=== PATIENT | male | born 1980 | race Caucasian/White ===

== ENCOUNTER 2018-06-10 18:46 | Emergency (ER) | payer OTHER ==
[2018-06-10] MEDS ORDERED: ORPHENADRINE CITRATE 60 MG/2 ML ML IM ONE (19:04)
[2018-06-10] MEDS ORDERED: KETOROLAC TROMETHAMINE 60 MG/2 ML VIAL IM ONE (19:04)
--- NOTE | 2018-06-10 20:03 | ED Physician Documentation ---
Upper Back Injury/Pain - HISTORIAN Historian: patient - HPI Stated Complaint: upper back pain Chief Complaint: Upper Back Injury/ Pain Onset: days ago Further Comments: yes (37 year old male patient presents with complaint of 2 weeks of back pain. States the pain is worse today after working. Lifted and moved heavy equipment 2 weeks which started the back pain. Pain is worse with movement and using his arms. Denies SOB or N/V with back pain. Reports pain is between his shoulders.) - ROS NEURO/PSYCH: denies: difficulty with speech, anxiety, depression, other EYES/ENT: none CVS/RESP: none CONST: denies: no problems, recent illness, other GI/: denies: nausea, vomiting, problems urinating, incontinence, other MS/SKIN/LYMPH: denies: none, calf pain, neck pain, joint pain, leg swelling, rash, swollen glands, leg pain, back pain, ankle swelling, other - PAST HX Past History: back pain Allergies/Adverse Reactions: Allergies Allergy/AdvReac Type Severity Reaction Status Date / Time Penicillins Allergy Verified 06/10/18 19:05 Home Medications: Ambulatory Orders Medication Instructions Recorded Baclofen [Liorasal] 10 mg PO TID PRN #30 tablet 06/10/18 Ketorolac Tromethamine [Toradol] 10 mg PO TID #15 tablet 06/10/18 - SOCIAL HX Smoking History: cigarettes - FAMILY HX Family History: denies: none - VITAL SIGNS Vital Signs: Vital Signs Temp Pulse Resp BP Pulse Ox 98.2 F 88 20 143/93 97 06/10/18 20:07 06/10/18 20:07 06/10/18 20:07 06/10/18 20:07 06/10/18 20:07 - REVIEWED ASSESSMENTS Nursing Assessment Reviewed: Yes Vitals Reviewed: Yes Progress - Progress Progress: Patient sleeping on stretcher. States he feels better. Reviewed discharge instructions; questions answered. Patient able to walk out of ER with no grimacing or c/o discomfort. ED Results Lab/Radiology - Radiology Radiology Impressions: EXAMINATION: T SPINE 3 VIEWS HISTORY: mid back pain, no injury COMPARISON: None FINDINGS: The vertebral bodies are normally aligned. No acute fracture or compression deformity is identified. There is mild degenerative disc disease predominating in the lower thoracic spine. IMPRESSION: 1. No acute fracture or subluxation identified. 2. Mild thoracic degenerative disc disease. Electronically signed on Jun 10, 2018 7:44:18 PM CDT by: Marquis Araiza - Orders Orders: ED Orders Category Date Time Status T SPINE 3 VIEWS [RAD] Stat Exams 06/10/18 Taken Ketorolac Tromethamine [Toradol] Med 06/10/18 19:04 Discontinued 60 mg IM NOW ONE Orphenadrine Citrate [Norflex] Med 06/10/18 19:04 Discontinued 60 mg IM NOW ONE Upper Back Injury Physical Ex - Physical Exam General Appearance: mild distress Back: muscle spasm (T-spine; worse on right), other (pain worse with movement. ). No: vertebral point-tendernes Respiratory: chest non-tender, breath sounds nml CVS: heart sounds nml, bilateral pulses nml Skin: normal color, warm/dry, NR, INT, PAL, DR Neuro/Psych: oriented x3 Discharge Clincal Impression: Acute thoracic back pain Qualifiers: Back pain laterality: right Qualified Code(s): M54.6 - Pain in thoracic spine Prescriptions: Baclofen [Liorasal] 10 mg PO TID PRN #30 tablet PRN Reason: Spasms Ketorolac Tromethamine [Toradol] 10 mg PO TID #15 tablet Referrals: Primary Doctor,No [Primary Care Provider] - 2 Days Additional Instructions: Ice Rest Elevation You may use Tylenol every 4hour as needed for pain. Limit your dose to less than 4 G per day. Do not take ibuprofen, aleve, naproxen or any other NSAID while you are on toradol. (ketoralac) You may want to try massage, over the counter lidocaine patches, biofreeze, cyrus chapin or aspercream . If you are unable to bear weight and continuing to have significant pain on day 3-4; see your PCP for re-evaluation and additional xrays Condition: Stable Decision to Admit: NO Decision Time: 20:02
[2018-06-10 20:14] VITALS: BP 143/93
--- NOTE | 2018-06-11 05:05 | Diagnostic Imaging Report ---
ANICETO CHICAS (FERRIS WHEEL OPERATOR) - ER [facility] [address] [facility].[address] [address] Report Submission Date: Jun 10, 2018 7:44:18 PM CDT Patient Study Name: [address] Date: Jun 10, 2018 7:12:23 PM CDT Modality Type: DX Gender: M Description: T SPINE 3 VIEWS : 76 Institution: [facility] Physician: ANICETO CHICAS (FERRIS WHEEL OPERATOR) - ER EXAMINATION: T SPINE 3 VIEWS HISTORY: mid back pain, no injury COMPARISON: None FINDINGS: The vertebral bodies are normally aligned. No acute fracture or compression deformity is identified. There is mild degenerative disc disease predominating in the lower thoracic spine. IMPRESSION: 1. No acute fracture or subluxation identified. 2. Mild thoracic degenerative disc disease. Electronically signed on Jun 10, 2018 7:44:18 PM CDT by: Marquis CELESTE
== END 2018-06-10 20:12 ==
LOC: ED 18:46
DX: M54.6 Pain in thoracic spine (principal)
CPT/HCPCS: 72072; 96372; 99283; J1885; J2360